=== PATIENT | male | born 1960 | race Caucasian/White ===

== ENCOUNTER 2018-05-22 12:37 | Emergency (ER) | payer SELFPAY ==
[2018-05-22] MEDS ORDERED: NITROGLYCERIN 0.4 MG 25 EA TAB SL ONE ×2 (12:44→12:46)
[2018-05-22 12:45] VITALS: TEMP 95.9
[2018-05-22] MEDS ORDERED: NITROGLYCERIN/D5W IV 250 ML IVS ONE (12:54)
[2018-05-22] MEDS ORDERED: NITROGLYCERIN/D5W IV 50,000 MCG in PREMIX BOTTLE 1 BOTTLE IVS SCH (13:00)
--- NOTE | 2018-05-22 13:00 | RAD ---
Chest single view on 05/22/2018 CLINICAL INDICATION: Chest pain COMPARISON: None FINDINGS: The lungs are clear. Cardiac, hilar and mediastinal contours are within normal limits. Pulmonary vascularity is within normal limits. No bony abnormality is noted. IMPRESSION: No active disease. Electronically signed by: Son Curtis 05/22/2018 12:59 PM CDT
--- NOTE | 2018-05-22 13:03 | ED.PDOC ---
History of Present Illness - General Chief Complaint: Chest Pain/MO Stated Complaint: chest pain Time Seen by Provider: 05/22/18 12:53 Source: patient Exam Limitations: no limitations - History of Present Illness Initial Comments: Severino Espinoza 57 y/o male with history of MO ,s/p cardiac stent 2015 in [place] came to ER with dull chest pains radiating to left arm stating that he was feeling sick. 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 Timing/Duration: 1-3 hours Severity: moderate Location: central Activities at Onset: activity Prior Chest Pain/Cardiac Workup: cardiac cath, other - see hpi/cardiac stent Improving Factors: nothing Worsening Factors: nothing Nitro Today/Relief: no nitro taken today Aspirin Treatment Today: provided at home Associated Symptoms: other - see hpi Allergies/Adverse Reactions: Allergies NO KNOWN ALLERGY Allergy (Verified 05/22/18 12:44) Home Medications: Ambulatory Orders NK [NK] 05/22/18 Review of Systems - Review of Systems Constitutional: States: no symptoms reported EENTM: States: no symptoms reported Respiratory: States: no symptoms reported Cardiology: States: see HPI Gastrointestinal/Abdominal: States: no symptoms reported Genitourinary: States: no symptoms reported Musculoskeletal: States: no symptoms reported Skin: States: no symptoms reported Neurological: States: no symptoms reported Endocrine: States: no symptoms reported Hematologic/Lymphatic: States: no symptoms reported Past Medical History (General) - Patient Medical History Hx Stroke: No Hx Cardiac Disorders: Yes - MO Hx Congestive Heart Failure: No Hx Hypertension: Yes Hx Diabetes: No Surgical History: other - both knees,cardiac stent - Vaccination History Hx Influenza Vaccination: No - Social History Hx Tobacco Use: No Hx Alcohol Use: No Hx Substance Use: No Hx Physical Abuse: No Hx Emotional Abuse: No - Activities of Daily Living Patient Lives Alone: No Family Medical History - Family History Father Living Status: Unknown Hx Cardiac Disease: Yes - dad -mi/ age 42;brother Physical Exam - Physical Exam General Appearance: Alert, Anxious, No apparent distress, Well Developed, Well Groomed, Well Hydrated, Well Nourished Eyes, Ears, Nose, Throat Exam: normal ENT inspection Neck: non-tender, full range of motion, supple, normal inspection Respiratory: chest non-tender, lungs clear, normal breath sounds, no respiratory distress Cardiovascular/Chest: normal peripheral pulses, regular rate, rhythm, no murmur Peripheral Pulses: radial,right: 2+, radial,left: 2+ Gastrointestinal/Abdominal: normal bowel sounds, non tender, soft, no organomegaly Neurologic: no motor/sensory deficits, alert, oriented x 3 Skin Exam: normal color, warm/dry Progress - Progress Progress: 05/22/18 13:06 Last Vital Signs Temp 95.9 F L 05/22/18 12:41 Pulse 73 05/22/18 12:58 Resp 20 05/22/18 12:41 BP 157/99 05/22/18 12:58 Pulse Ox 93 L 05/22/18 13:05 05/22/18 13:23 TNK given after consent was obtained ,heparin bolus/drip.nitro drip and [employer] worker Dr. Waldemar DEE notified about patient;also w/Dr.Jackson FREDRICK Vega 05/22/18 13:32 - Results/Orders Results/Orders: 05/22/18 12:46 IV Care:Saline Lock per Protoc QSHIFT Telemetry .ONCE EKG Stat Pulse Ox Stat 05/22/18 13:00 Nitroglycerin/D5w IV 50,000 mcg Premix Bottle 1 bottle IVS PRN 05/22/18 13:15 EKG STAT 05/22/18 13:30 Heparin Premix [Heparin/D5w 25,000U/500ML] 25,000 units Premix Bag 1 bag IVS PRN Laboratory Results - last 24 hr 05/22/18 12:49 WBC 9.9 RBC 5.15 Hgb 16.6 Hct 48.0 MCV 93.3 MCH 32.2 H MCHC 34.5 RDW 12.6 Plt Count 309 MPV 9.0 Absolute Neuts (auto) 6.30 Absolute Lymphs (auto) 2.50 Absolute Monos (auto) 0.90 H Absolute Eos (auto) 0.20 Absolute Basos (auto) 0.10 Neutrophils % 63.4 Lymphocytes % 25.3 Monocytes % 8.7 Eosinophils % 2.0 Basophils % 0.6 PT 9.6 INR 0.96 PTT (SP) 35.3 H Sodium 138 Potassium 3.8 Chloride 100 L Carbon Dioxide 27 Anion Gap 14.8 BUN 14 Creatinine 1.43 H BUN/Creatinine Ratio 9.8 L Random Glucose 127 H Serum Osmolality 277.7 Calcium 9.8 Magnesium 2.2 Creatine Kinase 390 H* CK-MB (CK-2) 5.2 H* CK-MB (CK-2) % 1.33 Troponin I 0.03 B-Natriuretic Peptide 14.7 - EKG/XRAY/CT EKG: Sinus, ST elevation - inferior 2-3,avf, ST depression - anterior wall XRAY: chest - no acute abnormalities Departure - Departure Clinical Impression: Acute inferior myocardial infarction, Chest pain due to coronary artery disease Time of Disposition: 13:16 Disposition: Transfer to Hospital Condition: Fair Departure Forms: Patient Portal Self Enrollment Home Medications: Ambulatory Orders NK [NK] 05/22/18 Transfer to Outside Facility - Transfer Information Accepting Provider:: Dr. 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
[2018-05-22] MEDS ORDERED: TENECTEPLASE 50 MG VIAL IV ONE (13:04)
[2018-05-22] MEDS ORDERED: SODIUM CHLORIDE 0.9% 1000ML 1,000 ML ONE ×2 (13:13→13:47)
[2018-05-22] MEDS ORDERED: MORPHINE SULFATE INJ 10 MG/ML VIAL IV ONE (13:18)
[2018-05-22] MEDS ORDERED: HEPARIN SODIUM (PORCINE) 5,000 U/ML VIAL IV ONE (13:19)
[2018-05-22] MEDS ORDERED: HEPARIN PREMIX 500 ML ONE (13:21)
[2018-05-22] MEDS ORDERED: HEPARIN PREMIX 25,000 UNITS in PREMIX BAG 1 BAG IVS SCH (13:30)
[2018-05-22 14:07] VITALS: BP 160/83; O2SAT 100
== END 2018-05-22 14:07 | disposition short-term general hospital (02) ==
LOC: ER 12:37
DX: I21.19 ST elevation (STEMI) myocardial infarction involving other coronary artery of inferior wall (principal); I25.2 Old myocardial infarction; I10 Essential (primary) hypertension; Z95.5 Presence of coronary angioplasty implant and graft; Z82.49 Family history of ischemic heart disease and other diseases of the circulatory system
CPT/HCPCS: 36415; 71045; 80048; 82550; 82553; 83880; 84484; 85025; 85610; 85730; 93005; 94760; J1644; J2270; J3101; J7030